=== PATIENT | female | born 1985 | race Hispanic/Latino ===

== ENCOUNTER 2017-01-26 14:59 | Outpatient (CLI) | payer OTHER ==
--- NOTE | 2017-01-26 16:21 | ULT ---
OB ULTRASOUND: Date: 01/26/17 HISTORY: Size and dates. FINDINGS: A single live intrauterine gestation is seen with measurements corresponding to an estimated gestati onal age of 19 weeks/4 days and SHEELA at 06/18/17. The estimated weight measures 308 gm, or 11 oz. measurements are as follows: BPD: 4.52 cm, 19 weeks/5 days HC: 16.95 m, 19 weeks/4 days AC: 14.24 cm, 19 week/4 days FL: 3.18 cm, 19 weeks/6 days heart rate measures 160 beats/minute. SABRINA measures 13.52 cm. Placenta is anteriorly located without evidence of placenta previa. Three vessel cord, cord insertion, kidneys, bladder, stomach, four chamber heart, face, cerebe llum, lateral ventricles, spine, upper and lower limbs are visualized. No anomalies are identi fied. IMPRESSION: Single live intrauterine of 19 week/4 days estimated gestational age and SHEELA at 06/18/17. POS: MARQUITA
== END 2017-01-26 15:00 | disposition home or self-care (01) ==
LOC: NAV ULT 14:59
PROVIDERS: ATTEND Family Medicine
DX: O09.92 Supervision of high risk pregnancy, unspecified, second trimester (principal)
CPT/HCPCS: 76805